=== PATIENT | female | born 1940 | race Caucasian/White ===

== ENCOUNTER 2021-07-20 00:46 | Emergency (ER) | payer MEDICARE ==
--- NOTE | 2021-07-20 01:06 | EDM.PDOC ---
ED HPI GENERAL MEDICAL PROBLEM - General Chief Complaint: General Stated Complaint: MEDICAL VIA [facility] Time Seen by Provider: 07/20/21 01:01 Source of Information: Reports: Patient, EMS History Limitations: Reports: No Limitations - History of Present Illness INITIAL COMMENTS - FREE TEXT/NARRATIVE: Jessy is a 81-year-old female presenting to the ED via [facility] for eval uation of acute onset of left-sided weakness causing her to fall and strike the back of her head. Patient reports around 2100 hrs. tonight she was sitting and reading a book. She was holding the book in her left hand as she is left-handed and all of a sudden the hand became numb causing her to drop the book. She felt like she did not have much hand grasp at that time to pick the book back up. This lasted for about 5 or 10 minutes and then started to improve. Then around 2330 tonight she was going to get a pizza out of the oven and her left knee gave out when she bent over to get the pizza causing her to fall. The patient tried to catch herself but ended up striking the back of her head on the wall before going to the ground. EMS reports that her [place] stroke score was negative and that the patient was for the most part back to her baseline with the exception of a large occipital hematoma. The patient does take an aspirin daily but denies any previous history of stroke. - Related Data Allergies Allergy/AdvReac Type Severity Reaction Status Date / Time No Known Allergies Allergy Verified 07/20/21 00:55 Home Meds: Home Meds NK [No Known Home Meds] 07/20/21 [History] Past Medical History APPLICATION COORDINATOR History: Reports: Endocrine/Metabolic History: Reports: Obesity/BMI 30+ - Infectious Disease History Infectious Disease History: Reports: Chicken Pox, Measles, Mumps - Past Surgical History GI Surgical History: Reports: Cholecystectomy Female Surgical History: Reports: Hysterectomy Social & Family History - Tobacco Use Tobacco Use Status *Q: Never Tobacco User - Caffeine Use Caffeine Use: Reports: Coffee ED ROS GENERAL - Review of Systems Review Of Systems: See Below Constitutional: Reports: No Symptoms HEENT: Reports: No Symptoms Respiratory: Reports: No Symptoms Cardiovascular: Reports: No Symptoms Endocrine: Reports: No Symptoms GI/Abdominal: Reports: No Symptoms : Reports: No Symptoms Musculoskeletal: Reports: No Symptoms Skin: Reports: No Symptoms Neurological: Reports: Weakness (Transient weakness in the left hand followed by transient weakness in the left leg causing her to fall and strike the back of her head on a chair.) Psychiatric: Reports: No Symptoms Hematologic/Lymphatic: Reports: No Symptoms Immunologic: Reports: No Symptoms ED EXAM, GENERAL - Physical Exam Exam: See Below Exam Limited By: No Limitations General Appearance: Alert, No Apparent Distress Eye Exam: Bilateral Eye: EOMI, PERRL Throat/Mouth: Normal Inspection, Normal Oropharynx, Normal Voice, No Airway Compromise Head: Normocephalic, Other (Large scalp hematoma over the high occiput. Minimally tender to palpation.) Neck: Normal Inspection, Supple, Non-Tender, Full Range of Motion. No: Carotid Bruit Respiratory/Chest: No Respiratory Distress, Lungs Clear, Normal Breath Sounds Cardiovascular: Normal Peripheral Pulses, Regular Rate, Rhythm, No Murmur Peripheral Pulses: 2+: Radial (L), Radial (R) GI/Abdominal: Normal Bowel Sounds, Soft, Non-Tender Extremities: Normal Inspection, Normal Range of Motion Neurological: Alert, Oriented, CN II-XII Intact, Normal Cognition, No Motor/Sensory Deficits Psychiatric: Normal Affect, Normal Mood Skin Exam: Warm, Dry, Intact, Normal Color Course - Vital Signs Last Recorded V/S: Last Vital Signs Temp 36.3 C 07/20/21 00:48 Pulse 87 07/20/21 00:48 Resp 16 07/20/21 00:48 BP 157/71 H 07/20/21 00:48 Pulse Ox 95 07/20/21 00:48 - Orders/Labs/Meds Orders: Active Orders 24 hr Category Date Time Status EKG Documentation Completion [RC] ASDIRECTED Care 07/20/21 01:11 Active Head wo Cont [CT] Stat Exams 07/20/21 00:54 Taken UA W/MICROSCOPIC [URIN] Stat Lab 07/20/21 01:22 Ordered EKG 12 Lead [EK] Routine Ther 07/20/21 01:11 Ordered Labs: Laboratory Tests 07/20/21 07/20/21 07/20/21 Range/Units 01:00 01:00 01:00 WBC 7.6 (4.5-11.0) K/uL RBC 4.79 (3.30-5.50) M/uL Hgb 14.0 (12.0-15.0) g/dL Hct 42.4 (36.0-48.0) % MCV 89 (80-98) fL MCH 29 (27-31) pg MCHC 33 (32-36) % Plt Count 153 (150-400) K/uL Neut % (Auto) 70.0 H (36-66) % Lymph % (Auto) 18.6 L (24-44) % [place] % (Auto) 10.0 H (2-6) % Eos % (Auto) 1.1 L (2-4) % Baso % (Auto) 0.3 (0-1) % PT 10.6 (9.2-10.6) sec INR 1.0 APTT 26.7 (21.4-31.8) sec Sodium 141 (140-148) mmol/L Potassium 4.0 (3.6-5.2) mmol/L Chloride 104 (100-108) mmol/L Carbon Dioxide 28 (21-32) mmol/L Anion Gap 9.3 (5.0-14.0) mmol/L BUN 19 H (7-18) mg/dL Creatinine 0.8 (0.6-1.0) mg/dL Est Cr Clr Drug Dosing 49.24 mL/min Estimated GFR (MDRD) > 60 (>60) Glucose 109 H (74-106) mg/dL Calcium 8.8 (8.5-10.1) mg/dL Total Bilirubin 0.9 (0.2-1.0) mg/dL AST 12 L (15-37) U/L ALT 17 (12-78) U/L Alkaline Phosphatase 75 (46-116) U/L Total Protein 6.7 (6.4-8.2) g/dL Albumin 3.5 (3.4-5.0) g/dL Globulin 3.2 (2.3-3.5) g/dL Albumin/Globulin Ratio 1.1 L (1.2-2.2) Ethyl Alcohol mg/dL 07/20/21 Range/Units 01:00 WBC (4.5-11.0) K/uL RBC (3.30-5.50) M/uL Hgb (12.0-15.0) g/dL Hct (36.0-48.0) % MCV (80-98) fL MCH (27-31) pg MCHC (32-36) % Plt Count (150-400) K/uL Neut % (Auto) (36-66) % Lymph % (Auto) (24-44) % [place] % (Auto) (2-6) % Eos % (Auto) (2-4) % Baso % (Auto) (0-1) % PT (9.2-10.6) sec INR APTT (21.4-31.8) sec Sodium (140-148) mmol/L Potassium (3.6-5.2) mmol/L Chloride (100-108) mmol/L Carbon Dioxide (21-32) mmol/L Anion Gap (5.0-14.0) mmol/L BUN (7-18) mg/dL Creatinine (0.6-1.0) mg/dL Est Cr Clr Drug Dosing mL/min Estimated GFR (MDRD) (>60) Glucose (74-106) mg/dL Calcium (8.5-10.1) mg/dL Total Bilirubin (0.2-1.0) mg/dL AST (15-37) U/L ALT (12-78) U/L Alkaline Phosphatase (46-116) U/L Total Protein (6.4-8.2) g/dL Albumin (3.4-5.0) g/dL Globulin (2.3-3.5) g/dL Albumin/Globulin Ratio (1.2-2.2) Ethyl Alcohol < 3 mg/dL - Re-Assessments/Exams Free Text/Narrative Re-Assessment/Exam: 07/20/21 01:52 viewed the patient's labs showing a normal CBC, comprehensive me tabolic panel, PT and PTT, and ethanol. The patient underwent a CT of the head without contrast that did not show any evidence of any intracranial hemorrhage, mass, or midline shift. There was no acute cranial abnormalities or scalp hematoma noted. 07/20/21 01:55 It appears that the patient may be having a TIA tonight involving the right hemisphere of the brain with initially the left hand numbness and incoordination followed by the left knee giving out. CT of the head was unremarkable as reported by [facility]. My plan is to put patient on a full aspirin a day 325 mg. She should follow-up with her primary provider or return to the ED if any additional issues arise. Departure - Departure Time of Disposition: 02:06 Disposition: Home, Self-Care 01 Clinical Impression: Transient ischemic attack - Discharge Information Instructions: Transient Ischemic Attack, [id number] Referrals: PCP,None [Primary Care Provider] - Forms: ED Department Discharge Care Plan Goals: It appears in your work-up that you had a transient ischemic attack (mini stroke that has resolved). To treat this and prevent additional mini strokes I am going to start you on a full aspirin 325 mg daily to help thin the blood. I would like you to discuss this with your primary care provider as well so that they are aware of this event tonight. Please return to the ED should you have any recurrence of symptoms for reevaluation. There are times when transient ischemic attacks are a precursor to a much larger stroke and if this were to occur time is of the essence to get the blood vessel open. Sepsis Event Note (ED) - Evaluation Sepsis Screening Result: No Definite Risk - Focused Exam Vital Signs: Vital Signs Temp Pulse Resp BP Pulse Ox 07/20/21 00:48 36.3 C 87 16 157/71 H 95 - Problem List & Annotations (1) Transient ischemic attack SNOMED Code(s): 188486115 Code(s): G45.9 - TRANSIENT CEREBRAL ISCHEMIC ATTACK, UNSPECIFIED Status: Acute Current Visit: Yes - My Orders Last 24 Hours: My Active Orders 07/20/21 00:54 Head wo Cont [CT] Stat 07/20/21 01:11 EKG Documentation Completion [RC] ASDIRECTED EKG 12 Lead [EK] Routine 07/20/21 01:22 UA W/MICROSCOPIC [URIN] Stat - Assessment/Plan Last 24 Hours: My Active Orders 07/20/21 00:54 Head wo Cont [CT] Stat 07/20/21 01:11 EKG Documentation Completion [RC] ASDIRECTED EKG 12 Lead [EK] Routine 07/20/21 01:22 UA W/MICROSCOPIC [URIN] Stat
--- NOTE | 2021-07-20 01:57 | CRLCT ---
For Patients: As a result of the Century Cures Act, medical imaging exams and procedure reports are released immediately into your electronic medical record. You may view this report before your referring provider. If you have questions, please contact your health care provider. INDICATION: Fall with transient left arm and left leg weakness. TECHNIQUE: CT head without contrast. COMPARISON: None. FINDINGS: CSF spaces: Within normal limits for age. Brain parenchyma: The neal-white differentiation is normal. No sign of mass, hemorrhage, or midline shift. Skull base and calvarium: Mild mucosal thickening paranasal sinuses. Atherosclerosis. The visualized orbits are grossly unremarkable. No skull fractures. IMPRESSION: Unremarkable noncontrast head CT. Please note that all CT scans at this facility use dose modulation, iterative reconstruction, and/or weight-based dosing when appropriate to reduce radiation dose to as low as reasonably achievable. Dictated by Jack Heath MD @ 07/20/2021 1:55:26 AM (Electronically Signed)
[2021-07-20] MEDS ORDERED: Sodium Chloride 0.9% 10 ML Syringe FLUSH PRN (02:28)
[2021-07-20] MEDS ORDERED: Sodium Chloride 0.9% 100 ML IV STA (02:38)
[2021-07-20] MEDS ORDERED: Iopamidol 755 Mg/ML 100 ML Bottle IV STA (02:38)
--- NOTE | 2021-07-20 03:37 | CRLCT ---
For Patients: As a result of the Century Cures Act, medical imaging exams and procedure reports are released immediately into your electronic medical record. You may view this report before your referring provider. If you have questions, please contact your health care provider. Final Report: INDICATION: Transient ischemic attack, left arm and leg weakness. TECHNIQUE: CTA head with contrast bolus tracking and 3D MIP reconstruction. FINDINGS: There is minor plaque around the carotid siphons. There is no significant stenosis. There is no large vessel occlusion. No aneurysm is identified. IMPRESSION: No large vessel occlusion. No significant intracranial stenosis. Please note that all CT scans at this facility use dose modulation, iterative reconstruction, and/or weight-based dosing when appropriate to reduce radiation dose to as low as reasonably achievable. Dictated by Lowell Veras MD @ 07/20/2021 1:12:34 PM Signed by: Lowell Veras MD @07/20/2021 1:12:34 PM (Electronic Signature) Dictated by Lowell Veras MD @ 07/20/2021 1:13:48 PM (Electronically Signed) [facility]ITALM[facility]
[2021-07-20] MEDS ORDERED: Clopidogrel 75 MG Tab PO ONE (03:48)
--- NOTE | 2021-07-20 14:49 | CRLCT ---
Final Report: INDICATION: Transient ischemic attack, left arm and leg weakness. TECHNIQUE: CTA neck with contrast bolus tracking and 3D MIP reconstruction. FINDINGS: There is no carotid or vertebral artery stenosis or dissection. The soft tissues of the neck are within normal limits. The cervical spine is in normal alignment. IMPRESSION: Unremarkable neck CTA. Please note that all CT scans at this facility use dose modulation, iterative reconstruction, and/or weight-based dosing when appropriate to reduce radiation dose to as low as reasonably achievable. Dictated by Lowell Veras MD @ 07/20/2021 1:13:48 PM Signed by: Lowell Veras MD @07/20/2021 1:13:48 PM (Electronic Signature) [facility]
== END 2021-07-20 04:17 | disposition home or self-care (01) ==
LOC: JP.ED 00:46
DX: G45.9 Transient cerebral ischemic attack, unspecified (principal); E66.9 Obesity, unspecified; Z68.36 Body mass index [BMI] 36.0-36.9, adult; Z20.822 Contact with and (suspected) exposure to COVID-19
CPT/HCPCS: 36415; 70450; 70496; 70498; 80053; 80307; 81001; 85025; 85610; 85730; 93005; 99285; A9270; Q9967; U0002